=== PATIENT | female | born 1955 | race Caucasian/White ===

== ENCOUNTER 2022-01-12 17:57 | Outpatient (CLI) | payer MEDICARE, SELFPAY | END 2022-01-12 17:58 | disposition home or self-care (01) | LOC: LKVREF 01-26 14:24 | PROVIDERS: PCP Family Medicine; Visit Provider Nurse Practitioner Family | DX: R32 Unspecified urinary incontinence (principal) | CPT/HCPCS: 87086; 87186 ==

== ENCOUNTER 2022-07-03 16:03 | Outpatient (CLI) | payer MEDICARE, SELFPAY ==
--- OUTSIDE RECORDS SUMMARY | 2022-07-03 16:05 | XMS_ITS | Continuity of Care Document ---
:1955 Author Organization [facility] Address [address] [place] [address] Care Team Providers Name Role Phone [facility] Unavailable Unavailable Procedures Procedure Date INJ FORAMEN EPIDURAL L/S FLUOROGUIDE FOR SPINE INJECT INJ FORAMEN EPIDURAL L/S Advance Directives Directive Yes / No Effective Date File Name No Information Encounters Encounter Practice Location Reason(s) Diagnoses Date Provider Provide rs Description For Visit Copied on Encounter [facility] Provider: Surgery Surgery Surgery [facility], [facility]. [facility], [address] [facility] [place], [place], [place], [id number], [place], [address]. [id number], tel:[phone] tel:[phone] Family History Family Member Type Diagnosis Age At Onset No Information Payers Payer name Insurance type Covered constitution party ID Authorization(s ) No Information Social History Type Description Quantity Date Captured Comments Sex Female Smoking Status No Information Chief Complaint And Reason For Visit No Information Reason For Referral Reason For Referral No Information Plan Of Treatment Date Type Action Status No Information History Of Present Illness Encounter Date Complaint History Of Present I llness No Information Functional Status Date Functional Assessment No Information Instructions Date Instruction Additional Informati on No Information Assessments Type Assessment Date No Information Patient Care Teams Name Effective Dates (start - stop) Status M embers No Information
--- OUTSIDE RECORDS SUMMARY | 2022-07-03 16:06 | XMS_ITS | Continuity of Care Document ---
:1955 Author Organization [facility] Address [address] [address] [place] [address] Phone Care Team Providers Name Role Phone Familia Valentin MD Unavailable Unavailable Allergies, Adverse Reactions, Alerts Substance Reaction Status Criticality aspirin Active No Information Medications Medication Instructions Dosage Effective Dates Status Comment s (start - stop) pregabalin 200 mg take 1 capsule by 200 MG - Active capsule oral route 2 times every day WELLBUTRIN SR take 1 tablet by Not Available - Active (unknown ORAL route 2 times strength) every day Herbal medical marijuana - Active Medications/Suppl ements unknown DETROL LA take 1 Capsule by Not Available - Active (unknown oral route every strength) day CELEXA (unknown take 1 tablet by Not Available - Active strength) oral route every day Mavyret 100 mg-40 take 3 tablet by - No Longer mg tablet oral route every Active day with a meal for 8 weeks Procedures Procedure Date Ugi Endo; W/bx 1/mx Level Iv-surg Path Gross/micro Offic/outpt E&m Estab Mod-hi 2 Routine Serum Collection Bld Ct; Hg & Platelet Ct Autom Alpha-fetoprotein; Serum Comp Metabolic Panel FibroScan Routine Serum Collection Alpha-fetoprotein; Serum Comp Metabolic Panel Hepatitis A Antibody; Igg & Ig Hepatitis B Surface Antibody Ag-immunoassay; Hep B Surface Prothrombin Time Advance Directives Directive Yes / No Effective Date File Name No Information Encounters Encounter Practice Location Reason(s) Diagnoses Date Provider Provide rs Description For Visit Copied on Encounter [facility] No Information [facility] 0 MD [facility], 0 Kurt. [address] [address], [facility] [address] [place], [place], [place], [place] [id number], [address], [place] tel: [place], [place], [phone] , [place]. tel: [phone] [facility] Referring [facility] esophagus Provider: Health GERARDO, Endoscopy determined by 0 Mendoza. 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 tel: esophagus without [place], [place], tel :[phone] dysplasiaChronic [id number] viral hepatitis C , [place]. tel: [phone] [facility] No Information b- [facility] 6 MD [facility], 0 Kurt. [address] [address], [facility] s, [place], [place], [place] [id number], [address], [place] tel: [place], [place], [phone] , [place]. tel: [phone] Offic/outpt [facility] GI Chronic viral b- Barbie pavon E&josé miguel [facility] Symptoms hepatitis C MD [facility] Provide r: Mod-hi 2 Health [facility], or 0 Kurt. Referral [address]. [address], (chief [facility] complaint) Street [place], [place], [place], [place] [id number], [address], [place] tel: [place], [place], [phone] , [place]. tel: [phone] MOLLY [place] No Information Nov- [facility] 9-201 MD Rebecca CARRILLO, Ирина Owens. [address] [address], [facility] s, [place], [place], [place] [id number], [address], [place] tel:+ [place], [place], [phone] , [place]. tel: [phone] MOLLY [place] Chronic viral Brian-1 Barbie [facility] hepatitis C 3-201 MD [facility] Provider: Ирина Ortiz. Referral [address]. [address], [facility] s, [place], [place], [place] [id number], [address], [place] tel:[phone] [place], [place], [phone] , [place]. tel: [phone] MOLLY [facility] Chronic hepatitis Brian-0 Barbie Zaman [facility] Symptoms C without hepatic 5 S Pro vider: Rebecca CARRILLO, or coma 9 Kurt. 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 [place] tel:[phone] tel:+ [place], [place], [phone] , [place]. tel: [phone] Family History Family Member Type Diagnosis Age At Onset Mother Problem (finding) Alive and well Father Problem (finding) Immunizations Vaccine Date Status Comments Prevnar administered Note: [facility] bi-di rectional interface ; Sour ce: Other Registry tetanus toxoid, reduced administered Note: [facility] bi-directional diphtheria toxoid, and interface ; Source: Other acellular pertussis vaccine, Reg istry adsorbed Influenza administered Note: [facility] bi-di rectional interface ; Sour ce: Other Registry Payers Payer name Insurance type Covered alliance party ID Authorization(s ) No Information Social History Type Description Quantity Date Captured Comments Alcohol Use Details Unknown Caffeine Use Details Unknown Tobacco Use Status No Information Smoking Status No Information Sex Female Chief Complaint And Reason For Visit No Information Reason For Referral Reason For Referral No Information Plan Of Treatment Date Type Action Status Referral Ordered: ordered follow-up visit with hepatology nurse 3 Weeks Appointment date/timeframe: 3 Weeks History Of Present Illness Encounter Date Complaint History Of Present I llness GI Symptoms or Concerns The patient is a 64-year-old woman with chronic hepatitis C. She was seen 6 months ago, and tentative p lans were made for treatment, but she d id not come for followup. She frequently goes out of town and feels that it is difficult too treat when she is not here for a period of time . Workup 6 months ago revealed that she is genotype 1a with 7.7 million internationa l units of virus present. She is not immune to hepatitis B and non-infected for B. Moderate transaminase elevations with AST 76, ALT 129 and ultrasound done at that time re vealed fatty infiltration, otherwise unremarkab le exam. Notably, FibroScan was done a nd demonstrated 30 kilopascals of stiff ness indicating that she is cirrhotic. She sauer s no specific complaints today. Physical exam was noncontributory. There is no hepatosp lenomegaly, no ascites, no edema and no asterix is. Past history otherwise notable for shoulder surgery, ACL surgery, left leg surgery, ri ght foot surgery and a total hysterectomy. She is a nonsmok GI Symptoms or Concerns The patient is a 63-year-old woman who comes in for further evalu ation of possible liver disease. She states she knows she has hepatitis C, but is uncertain she can afford medication. 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 Past his tory is also notable for shoulder surgery, AC L surgery, left leg surgery, right foot surgery and hysterectomy. She has a lower extr emity neuropathy and actually fell 3 time s last year with a fractured tibia requ iring pinning. She is a nonsmoker. Review of systems is completely negative. Only medic ations at this time are Detrol and Celexa. P hysical exam is completely unremarkable. There is no hepatomegaly, no ascites, no asterixi s, no spider angiomata, and no edema. Labora tory done in September of last year notable for mod erate transaminase elevations with AST 93, ALT 110, hemoglobin A1c 5.4. Total bilir ubin and albumin were normal. More recent liver tests done in August of this year again w ith mild mukherjee Functional Status Date Functional Assessment No Information Instructions Date Instruction Additional Informati on Repeat comprehensive metabolic Related t o Chronic hepatitis C profile, INR, HCV RNA genotyping, withou t hepatic coma liver ultrasound, FibroScan, hepatitis A-B serologies and consider vaccinating as necessary. Patient is going to [facility] next month for a family vacation home and will be there for about 2 months. We will plan follow up in 3 months and hopefully begin hepatitis C treatment at that time. Assessments Type Assessment Date No Information Patient Care Teams Name Effective Dates (start - stop) Status M huy No Information
--- OUTSIDE RECORDS SUMMARY | 2022-07-03 16:06 | XMS_ITS | Continuity of Care Document ---
:1955 Author Organization [facility] Address [address] [place] [address] Phone Care Team Providers Name Role Phone Roger Blanco Unavailable Unavailable Allergies, Adverse Reactions, Alerts Substance Reaction Status Criticality No Known Allergies Active No Informatio n Medications Medication Instructions Dosage Effective Dates Status Comment s (start - stop) PREGABALIN 200 MG TAKE 1 CAPSULE BY - Active CAPSULE MOUTH TWICE A DAY tramadol 50 mg take 1 tablet by - Active tablet oral route every 6 hours by oral route for chronic pain Medrol (Evan) 4 mg take by Oral route Not Available - Acti ve tablets in a dose as directed on pack pack DETROL LA (unknown take 1 capsule by Not Available - Active strength) oral route every day CELEXA (unknown take 1 tablet by Not Available - Active strength) oral route every day Procedures Procedure Date OFFICE/OUTPATIENT VISIT, EST Foll-up eval q3mo opiod tx OFFICE/OUTPATIENT VISIT, EST Drug Urine Toxology With Chromatography Drug test def 15-21 classes Foll-up eval q3mo opiod tx OFFICE/OUTPATIENT VISIT, EST Foll-up eval q3mo opiod tx OFFICE/OUTPATIENT VISIT, EST Drug Urine Toxology With Chromatography Drug test def 8-14 classes Foll-up eval q3mo opiod tx OFFICE/OUTPATIENT VISIT, EST Foll-up eval q3mo opiod tx OFFICE VISIT, EST TELEMEDICINE OFFICE VISIT, EST TELEMEDICINE Foll-up eval q3mo opiod tx OFFICE VISIT, EST TELEMEDICINE Foll-up eval q3mo opiod tx OFFICE VISIT, EST TELEMEDICINE OFFICE VISIT, EST TELEMEDICINE INJ FORAMEN EPIDURAL L/S BILATERAL OFFICE/OUTPATIENT VISIT, EST Drug test def 22+ classes Drug Urine Toxology With Chromatography Foll-up eval q3mo opiod tx OFFICE/OUTPATIENT VISIT, EST PT-FOCUSED HLTH RISK ASSMT OFFICE CONSULTATION Advance Directives Directive Yes / No Effective Date File Name No Information Encounters Encounter Practice Location Reason(s) Diagnoses Date Provider Provide rs Description For Visit Copied on Encounter [facility] No Information [facility] Roger. Pain [address] [facility], [facility] Jorge Luis, [address], [place], [place], [place], [place], [id number] , [place] , [place]. tel: tel: [phone] OFFICE/OUTPAT [facility] Back Pain Other chronic [facility] Referring IENT VISIT, [facility] (chief painOther Roger. 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 . tel: tim syndrome, not tel: te l:[phone] elsewhere [phone] classifiedOther intermediate project manager (current) drug therapyDe Quervain tenosynovitis OFFICE/OUTPAT [facility] Back Pain Other chronic Pierce Referring IENT VISIT, [facility] (chief painOther Roger. 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 . tel: tim syndrome, not tel: te l:+ [phone] elsewhere [phone] classifiedOther assisted (current) drug therapy [facility] Roger. Pain [place] [address], [facility] [address] Jorge Luis, [address], [place], [place], [place], [place], [phone] , [place] , [place]. tel: tel: [phone] OFFICE/OUTPAT [facility] Back Pain Other chronic Pierce Referring IENT VISIT, [facility] (chief painOther Roger. 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 . 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 Provider: EST Pain [place] complaint) y syndrome, not 2 [address] [facility], 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 . tel: (current) drug tel: tel: [phone] therapyOther [phone] intervertebral disc displacement, lumbar region [facility] No Information [facility] Roger. Pain [place] [address], [facility] [address] Jorge Luis, [address], [place], [place], [place], [place], [id number] , [place] , [place]. tel: tel: [phone] OFFICE/OUTPAT [facility] Back Pain Other chronic Pierce Referring IENT VISIT, [facility] (chief painPostlaminectom Bassem cisse Provider: EST Pain [place] complaint) y syndrome, not [address] [facility], elsewhere [facility] [address] Will J, [address] classifiedOther [address] Jorge Luis, idiopathic 100, Jorge Luis, [place], peripheral [place], autonomic e, [place], [place], [place], [id number] neuropathyOther [phone] , [place] assisted , [place]. . tel: (current) drug tel: tel: [phone] therapyOther [phone] intervertebral disc displacement, lumbar region OFFICE VISIT, [facility] Back Pain Other chronic Pierce Referring [facility] (chief painOther long Roger. Pro[place] ramandeep: TELEMEDICINE Pain [place] complaint) term (current) [address] [facility], drug therapyOther [facility] [address] Will J, [address] idiopathic [address] Jorge Luis, peripheral 100, Jorge Luis, [place], autonomic [place], neuropathyPostlami [place], [place], [place], [place] , [address] nectomy syndrome, [phone] , [place] not elsewhere , [place]. . tel: classified tel: tel: [phone] OFFICE VISIT, [facility] Back Pain Other Pierce [facility] (chief intervertebral Roger. Pro[place] ramandeep: TELEMEDICINE Pain [place] complaint) disc displacement, 1 14 [address] [facility], lumbar region[address] Andrea l J, [address] chronic painOther [address] Jorge Luis, assisted 100, Jorge Luis, [place], (current) drug [place], therapyOther [place], [place], [place], [place], [address] idiopathic [phone] , [place] peripheral , [place]. . tel: autonomic tel: tel: [phone] neuropathyPostlami [phone] nectomy syndrome, not elsewhere classified OFFICE VISIT, [facility] Back Pain Other Pierce [facility] (chief intervertebral Roger. Pro[place] ramandeep: TELEMEDICINE Pain [place] complaint) disc displacement, 1 14 [address] [facility], lumbar regionOther [facility] [address] Andrea l J, [address] chronic painOther [address] Jorge Luis, intermediate project manager 100, Jorge Luis, [place], (current) drug [place], therapyOther [place], [place], [place], [place], [address] idiopathic [phone] , [place] peripheral , [place]. . tel: autonomic tel: tel: [phone] neuropathyPostlami [phone] nectomy syndrome, not elsewhere classified OFFICE VISIT, [facility] Back Pain Other Jul-0 Pierce [facility] (chief intervertebral Roger. [place] ramandeep: TELEMEDICINE Pain [place] complaint) disc displacement, 1 14 [address] [facility], lumbar regionOther [address] Andrea l J, [address] chronic painOther [address] Jorge Luis, assisted 100, Jorge Luis, [place], (current) drug [place], therapyOther [place], [place], [place], [place], [address] idiopathic [phone] , [place] peripheral , [place]. . tel: autonomic tel: tel: [phone] neuropathy [phone] OFFICE VISIT, [facility] Back Pain Other Pierce Refe rring EST [facility] (chief intervertebral Daniel. Lunai ramandeep: TELEMEDICINE Pain [place] complaint) disc displacement, 0 14 [address] [facility], lumbar regionOther [address] Andrea l J, [address] chronic painOther [address] Jorge Luis, intermediate project manager 100, Jorge LuisLiset, (current) drug [place], therapy [place], [place], [place], [place], [phone] , [place] , [place]. . tel: tel: tel: [phone] [facility] Other [place] Referring [facility] intervertebral Amara. Provider: Pain Center disc displacement, 0 [address] [facility], lumbar region Jorge Luis Will J, [address] [place] [address] Jorge Luis, [place], [place], Jorge Luis, [place], [phone] [place], , [place]. s, [place], [id number] tel:[phone] , [place] [id number] . tel: tel: [phone] [facility] No Information [facility] Cain. Pain [place] [address], Jorge Luis, [address] [place], [place], [place], [place], [id number] [place], , [place]. [id number] tel: , [place] [phone] tel: [phone] OFFICE/OUTPAT [facility] Back Pain Other Pierce Refe rring IENT VISIT, [facility] (chief intervertebral Roger. Haven darnellder: EST Pain [place] complaint) disc displacement, 0 [address] [facility], lumbar regionOther [address] Andrea l J, [address] assisted [address] Jorge Luis, (current) drug 100, Jorge Luis, [place], therapyOther [place], chronic pain [place], [place], [place], [place], [phone] , [place] , [place]. . tel: tel: tel: [phone] [facility] Other Will [facility] intervertebral 8 Cain. Pain [place] disc displacement, 0 [address] [facility], lumbar region Jorge Luis, [address] [place], [place], [place], [place], [id number] [place], , [place]. [id number] tel: , [place] [phone] tel: [phone] OFFICE/OUTPAT [facility] Back Pain Other chronic Pierce Referring IENT VISIT, [facility] (chief painOther Roger. 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 . tel: (current) drug tel: tel: [phone] therapyEncounter [phone] for therapeutic drug level monitoring OFFICE [facility] Back Pain Other chronic Pierce Refe rring CONSULTATION [facility] (chief painOther Roger. [place] ramandeep: Pain [place] complaint) idiopathic [address] [facility] [address] Will J, [address] autonomic [address] Jorge Luis, neuropathyOther 100, Jorge Luis, [place], intervertebral [place], disc displacement, [place], [place], [place], [place] , [address] lumbar region [id number] , [place] , [place]. . tel: tel: tel: [phone] [facility] Back Pain No [facility]chief Roger. Pain [place] complaint) 9 [address] [facility], [facility] [address] Jorge Luis, 100, [place], [place], [place], [place], [phone] , [place] , [place]. tel: tel: [phone] Family History Family Member Type Diagnosis Age At Onset No Information Payers Payer name Insurance type Covered alliance party ID Authorization(s ) AARP MedicareComplete Replacement [id number] Social History Type Description Quantity Date Captured Comments Sex Female Smoking Status No Information Chief Complaint And Reason For Visit No Information Reason For Referral Reason For Referral No Information Plan Of Treatment Date Type Action Status Goal Medication Reconciliation. Due o n due Goal CT-Colonography. Due on 022 due Goal FIT-DNA. Due on due Goal FIT. Due on due Goal Review Allergy List. Due on due Goal Height. Due on due Goal Update Social History. Due on Goal PHQ-9. Due on due Goal Weight. Due on due Goal Unhealthy drug use screening. Du on due Goal Tobacco Use. Due on due Goal Hepatitis C screening. Due on Goal Zoster vaccine (1st). Due on due Goal Lipid panel. Due on due Goal PHQ-9. Due on due Goal Review Allergy List. Due on due Goal FIT-DNA. Due on due Goal Update Social History. Due on Goal Hepatitis C screening. Due on Goal Weight. Due on due Goal Medication Reconciliation. Due o n due Goal Lipid panel. Due on due Goal Zoster vaccine (). Due on due Goal Unhealthy drug use screening. Du e on due Goal Height. Due on due Goal Tobacco Use. Due on due Goal FIT. Due on due Goal CT-Colonography. Due on due Goal FIT-DNA. Due on due Goal Zoster vaccine (). Due on due Goal Tobacco Use. Due on due Goal Review Allergy List. Due on due Goal CT-Colonography. Due on due Goal Update Social History. Due on du Goal PHQ-9. Due on due Goal Weight. Due on due Goal Lipid panel. Due on due Goal FIT. Due on due Goal Unhealthy drug use screening. Du e on due Goal Medication Reconciliation. Due o n due Goal Hepatitis C screening. Due on du e Goal Height. Due on due Goal Height. Due on due Goal Tobacco Use. Due on due Goal Review Allergy List. Due on due Goal Medication Reconciliation. Due o n due Goal Update Social History. Due on Goal Weight. Due on due Goal PHQ-9. Due on due Goal CT-Colonography. Due on 022 due Goal FIT. Due on due Goal FIT-DNA. Due on due Goal Hepatitis C screening. Due on Goal Lipid panel. Due on due Goal Unhealthy drug use screening. on due Goal Zoster vaccine (). Due on due Goal Height. Due on due Goal Review Allergy List. Due on due Goal Tobacco Use. Due on due Goal Weight. Due on due Goal Update Social History. Due on Goal PHQ-9. Due on due Goal Medication Reconciliation. Due o n due Goal Height. Due on due Goal Review Allergy List. Due on due Goal Tobacco Use. Due on due Goal Weight. Due on due Goal Update Social History. Due on yefri Goal PHQ-9. Due on due Goal Medication Reconciliation. Due o n due Goal Height. Due on due Goal Review Allergy List. Due on due Goal Tobacco Use. Due on due Goal Weight. Due on due Goal Update Social History. Due on Goal PHQ-9. Due on due Goal Medication Reconciliation. Due o n due Goal Height. Due on due Goal Review Allergy List. Due on due Goal Tobacco Use. Due on due Goal Weight. Due on due Goal Update Social History. Due on Goal PHQ-9. Due on due Goal Medication Reconciliation. Due o n due Goal Height. Due on due Goal Review Allergy List. Due on due Goal Tobacco Use. Due on due Goal Weight. Due on due Goal Update Social History. Due on Goal PHQ-9. Due on due Goal Medication Reconciliation. Due o n due Goal Height. Due on due Goal Review Allergy List. Due on due Goal Tobacco Use. Due on due Goal Weight. Due on due Goal Update Social History. Due on Goal PHQ-9. Due on due Goal Medication Reconciliation. Due o n due Future Order: [facility] Sent on: Sent Future Order: Lab Order Toxicology Preliminary P [place] (2100), Sent Sent on: History Of Present Illness Encounter Date Complaint History Of Present I llness Back Pain Severity level is 9. Duration: chronic. The problem is worsening . It occurs persistently. The client describes the pain as an ache, burning, sharp and tingling. Symptoms are aggravated by lifting, running, wa lking, prolonged positioning and housework. Sympt oms are relieved by heat, ice, pain meds/drugs , sitting and standing. Comments: Luz Maria is here today for follow up and medication managemen t. Reports 80% relief with current regimen and denies any side effects. Details significant relief with Lyrica. Reports overall pain has wor sened since last office visit. Continues to report neck and lower back pain. Notes continue d shooting pain in R thumb and hand. Also repor ts swelling. Notes using cannabis cream has h elped. Interested in injections.Of note, traveling to [facility] in January.She is agr eeable to continue with Belbuca and Tramadol for pain management. Did not bring medication for count today. States the tramadol has not hel ped with her pain recently. Continues medical ca nnabis. Patient is not accompanied today an d has no other questions or concerns. Back Pain Severity level is 8. Duration: chronic. The problem is worsening . It occurs persistently. The client describes the pain as an ache and sharp. Comments: Luz Maria is here today for follow up and medication managemen t. Reports >50% relief with their current regime n and denies any side effects. Details sig nificant relief with Lyrica. Reports overall pain has worsened since last office visit. Contin ues to report neck and lower back pain. Notes gigi oting pain in R wrist and hand. Notes using ca nnabis cream has helped. Of note, she is traveli ng to [place].She is agreeable to continu e with Belbuca and Tramadol for pain management. Did not bring medication for count today. Reports she has a full box left and will remember to pelon bañuelos her medication next OV. Reports she needs a recertification for medical cannabis.Patient is not accompanied today and has no other questions o r concerns. Back Pain Severity level is 5. Duration: chronic. The problem is stable. I t occurs persistently. Location of pain is lower back and neck. The client describes the pain as an ache, burning, numbness and sharp. Symptoms are aggravated by ascending stairs, be nding, descending stairs, lifting, running, si tting, standing, twisting and walking. Symptoms ar e relieved by heat, ice, lying down, pain med s/drugs, rest and sitting. Comments: Luz Maria is here today for follow up and medication managemen t. Reports >50% relief with their current regime n and denies any side effects. Details sig nificant relief with Lyrica. Reports overall pain to be stable since last office visit. Contin ues to report neck and lower back pain.Of note, p alexy reports acute injury after falling off a ladder. Consulting Radiology XR completed showing L8 rib fracture. While seen at urgent care patie nt received prescription of oxycodone for pain m anagement. Patient notes SE of itching. She is a greeable to continue with Belbuca and Tramadol for pain management.Patient is accompanied by he r today and has no other questions or c oncerns. Back Pain Severity level is 5. Duration: chronic. The problem is worsening . It occurs persistently. Location of pain is lower back and neck.The patient describes th e pain as an ache, burning, sharp and tingling. Symptoms are aggravated by lifting, housework a nd prolonged positioning. Symptoms are relieve d by heat, lying down, pain meds/drugs, stretchi ng, sitting, standing and changing positions. Back Pain (comments) Luz Maria is here toda y for follow up and medication management. Reports >50% relief with their current regimen and denies any side effects. Details significant relief with Lyrica. Reports overall pain to be s table since last office visit. Continues to report neck and lower back pain. She continues to consider lumbar surgery. Continues to heal fr om R wrist fracture.She has been utilizing Belbu ca 75mcg/hr with significant benefit. She has bee n cutting the films in half, which explains why s he follows-up every 1-2 months. Continues to report difficulty with insurance coverage. Most of today's OV was spent discussing upd ated imaging and available treatment options. Haven tracey is not accompanied today and has no oth er questions or concerns. Back Pain Duration: chronic. T he problem is stable. Location of pain is lower back.The patient describes the pain a s an ache, burning and sharp. Symptoms are aggrava fer by ascending stairs, bending, lifting, st anding, twisting and walking. Symptoms are relieve d by pain meds/drugs and rest. Back Pain (comments) Luz Maria is here toda y for follow up and medication management. Reports >50% relief with their current regimen and denies any side effects. Details significant relief with Lyrica. Reports overall pain to be s table since last OV. Continues to report neck and lower back pain. She continues to conside r lumbar surgery. Reports an onset of R wrist stephani n. States she fell and fractured it in [facility] places. Notes she was unable to trial Belb uca since last OV because it was too expensive. Haven tracey is not accompanied today and has no oth er questions or concerns. Back Pain Severity level is 8. Duration: chronic. The problem is worsening . It occurs persistently. Location of pain is lower back and feet.The patient describes th e pain as an ache. Symptoms are aggravated by be nding, lifting, movement and housework. Symptoms are relieved by ice, stretching, walking and changing positions. Back Pain (comments) Luz Maria is here toda y for follow up and medication management. Reports >50% relief with their current regimen and denies any side effects.Reports that her left heal pain is getting worse. Inqui res today if updated imaging would be helpful to evaluate her large herniated disc. Reports that s he does not want to return back to her neck los geon as she did not care for his bedside manor. S tates that she feels a lot more energetic since decreasing her Lyrica from 300mg to 200mg capsu les. She does not always take the Belbuca. It depe nds on how active she is for the day and how much her back is exacerbating her radicular symptoms. Patient is not accompanied today and has no oth er questions or concerns. Back Pain Severity level is 7. Duration: chronic. The problem is stable. I t occurs persistently. Location of pain is lower back and legs.The patient describes th e pain as an ache, burning and sharp. Symptoms are aggravated by ascending stairs, bending, julia nging positions, descending stairs, lifting, sta nding, twisting and walking. Symptoms are relieve d by heat, ice, lying down, pain meds/drugs and rest. Back Pain (comments) Luz Maria is here for follow-up and medication refills. Ongoing leg and low back pain persists, tolerable with medic ation. Her PCP recently decreased to lyrica 200mg twice a day. She uses Belbuca when she is in severe pain. She continues to use medical canna bis as needed. Requests a refill of Reports cu rrent medication regimen provides at least 50 % pain relief. Denies side effects from current medication regimen. No other concerns today. Back Pain Severity level is 8. Duration: chronic. The problem is stable. I t occurs persistently. Location of pain is lower back.The patient describes the pain a s an ache, burning and sharp. Symptoms are aggrava fer by ascending stairs, bending, changing po sitions, descending stairs, lifting and standing . Symptoms are relieved by heat, ice, lying kimmie n, pain meds/drugs and rest. Back Pain (comments) Luz Maria is here for follow-up and medication refills. She returns with widespread neck and low back pain which has been worse. She had a ACDF 5-7 on 08/22/[address] Falk which did not help her symptoms. S he will also be having lumbar surgery once she hea ls from cervical surgery. Medical cannabis is helpful but it does not manage all her pain. She requests to trial alternative pain med ication. Requests a refill of lyrica.Reports curre nt medication regimen provides at least 50 % pain relief. Denies side effects from current medication regimen. No other concerns today. Back Pain Severity level is 10 . Duration: chronic. The problem is worsening . It occurs persistently. Location of pain is lower back.The patient describes the pain a s an ache, burning and sharp. Symptoms are aggrava fer by ascending stairs, changing positions, descending stairs, lifting and standing. Sympto ms are relieved by heat, ice, lying down and rest. Back Pain (comments) Mariluz is here for follow-up ; last follow-up 08/31/2019. She presen ts with neck, low back and L hip pain. Pain has b een worse. She has been in [place] since last M ay taking care of her 95-year-old mother. She will be having a lumbar surgery on 08/22 with the [facility]. She believes no hardware will be yomi rob in her spine during surgery. She request s a refill and an increase of Lyrica before her up coming surgery. Reports current medication r egimen provides at least 50% pain relief. Denies side effects from current medication regimen. No other concerns today. Back Pain (comments) Luz Maria presents for follow up regarding her persistent back and BL foot pain.Reports that recent SARITA did not o ffer any relief and pain continues to be elev ated. C/o numbness in BLE with standing for mo re than two min which can make daily activitie s difficult. Ongoing relief with Lyrica and medi ana cannabis. Muscle relaxants in the pas t without benefit.No further questions or concern s. Back Pain Severity level is 9. Duration: chronic. The problem is worsening . It occurs persistently. The patient describes th e pain as an ache, burning, numbness, sharp and tingling. Symptoms are aggravated by standi ng, walking, movement and prolonged positionin g. Symptoms are relieved by heat, lying down and over the counter medication. Back Pain Severity level is 10 . Duration: chronic. The problem is fluctuati ng. It occurs persistently. Location of pain is lower back. Pain is radiated to the left foot and right foot.The patient describes the pain a s an ache, burning, sharp and tingling. Symptoms a re aggravated by ascending stairs, descending s tairs and walking. Symptoms are relieved by slee ping. Back Pain (comments) Luz Maria is here toda y for a followup regarding her persistent back pain . Recently met with dispensary following medical cannabis certification and re ports minimal improvements in her neuropathy since she started using recommended product. Started Lyrica with PCP and this has been more b eneficial for controlling her pain. Reports some i mprovements in her anxiety since starting medic al cannabis, but is not sure benefits outweigh th e cost of the products. She remains interested i n lumbar SARITA, but she would like MAC sedation fo r anxiety.Patient is not accompanied today an d has no further questions or other concerns. Back Pain Severity level is 5. Duration: chronic. It occurs persistently. Locati on of pain is lower back. Pain is radiated to the left calf and right calf.The patient ginger cribes the pain as burning and tingling. Sympto ms are aggravated by bending, daily activities, ly ing/rest and prolonged positioning. Symptom s are relieved by heat, ice, rest, changing posit ions, standing and walking. Back Pain (comments) Luz Maria is here toda y for a followup after initial consult for persiste nt back pain. States she is "not ready to complete LESI recommended last OV. Additionall y notes upcoming lumbar surgery with [facility] colin eduled later this month to remove painful hardw are. Today, she is requesting to move forward with medical cannabis certification. Addit ional questions regarding this were addressed today by provider. Patient is not accompanied tobarbara lema and has no further questions or other c oncerns. Back Pain (comments) Luz Maria is here for an initial consult for low back and bilateral f oot pain, referred by Dr. Kaur. LE neuropat hy began 5 years ago and worsened after fract uring her foot and undergoing subsequent surgical repair. Reports her hardware has migrated and thi s causing her increased pain. She is following britany Booker at [facility] next week regarding further w/ u. Tentatively plans to proceed with revisio n surgery 2019.Low back pain started a few m onths ago after a falling injury. Did not expe rience much pain until she went on a plane to [facility] when her symptoms onset. Was seen by [facility] betancourt in [place] and completed CT scan. S he did not complete any interventions there. States she annot stand for prolonged periods of time d/t pain and numbness in her BLE. Has not undergone PT or trialed injections to treat her pain. Reports previous imaging earlier this month--[facility]. Has taken Gabapentin, Ly chavez, and hydrocodone for additional pain reli ef. Most recently she has been taking Lyrica w hich has has been helpful. OTC CBD provides add itional pain relief. Luz Maria is interested in rec ommended therapies and would like [facility] to assume management of pain care. Back Pain Onset: sudden with i njury. Severity level is 10. Duration: acute. It occurs persistently. Symptoms are aggravated by be nding, daily activities, lifting, standing an d movement. Symptoms are relieved by heat, ic e, lying down, pain meds/drugs, stretchi ng, rest, sitting and walking. Back Pain (comments) Luz Maria is here for an initial consult for low back and bilateral f oot pain, referred by Dr. Kaur. Neuropathy began 5 years ago and worsened after fract uring her foot and subsequent surgical repair. Low back pain started a few months ago after a f alling injury. Cannot stand for prolonged period s of time d/t pain. Has not undergone PT or tria led injections to treat her pain. Reports previo us imaging earlier this month--[facility] . Has taken Gabapentin, Lyrica, and hydrocod one for additional pain relief. Luz Maria is in terested in recommended therapies and would like [facility] to assume management of pain c are. Back Pain Functional Status Date Functional Assessment No Information Instructions Date Instruction Additional Informati on No Information Assessments Type Assessment Date No Information Patient Care Teams Name Effective Dates (start - stop) Status M huy No Information
[2022-07-03 21:31] LABS: Albumin* 4.2 g/dL (3.3-5.0)
[2022-07-03 21:32] LABS: Chloride* 108 mmol/L (96-114); Potassium* 4.5 mmol/L (3.6-5.1); Sodium* 142 mmol/L (135-149)
[2022-07-03 21:34] LABS: Bilirubin Total* 0.5 mg/dL (0.1-1.5); Carbon Dioxide* 30 mmol/L (20-32); Cholesterol* 156 mg/dL (90-199); Creatinine* 0.6 mg/dL (0.5-1.5); Estimated Glomerular Filt Rate 97 ml/min
[2022-07-03 21:35] LABS: Alanine Aminotransferase* 71 U/L (4-35); Alkaline Phosphatase* 81 U/L (40-150); Aspartate Amino Transferase* 56 U/L (12-35); Blood Urea Nitrogen* 18 mg/dL (7-30); Calcium* 9.2 mg/dL (8.4-10.6); Glucose* 106 mg/dL (60-115); Total Protein* 7.3 g/dL (6.0-8.3); Triglycerides* 115 mg/dL (40-149)
[2022-07-03 21:36] LABS: HDL Cholesterol* 72 mg/dL (>=50); LDL Cholesterol Calculated 61 mg/dL (<100)
== END 2022-07-03 16:04 | disposition home or self-care (01) ==
PROVIDERS: PCP Family Medicine; Visit Provider Family Medicine
DX: Z01.818 Encounter for other preprocedural examination (principal); F32.A Depression, unspecified; K51.90 Ulcerative colitis, unspecified, without complications; R76.8 Other specified abnormal immunological findings in serum; Z13.6 Encounter for screening for cardiovascular disorders
CPT/HCPCS: 80053; 80061

== ENCOUNTER 2023-11-18 11:25 | Outpatient (CLI) | payer MEDICARE, SELFPAY ==
--- OUTSIDE RECORDS SUMMARY | 2023-11-22 19:02 | XMS_ITS | Clinical Summary ---
Author Organization [facility] Address [address] [place] [address] Care Team Providers Care Podiatrist Assistant Name Role Phone Chriss Kaur Primary Care Provider Unavailab erika Cannon Md Unavailable Unavailable Allergies No known active allergies Medications Medication Sig Dispensed Refills Start Date End Date Status buprenorphine HCL (SUBUTEX) 2 mg sublingual sublingual tablet TAKE 1 TABLET DAILY FOR SEVERE CHRONIC PAIN 08/06/2022 Active buPROPion (WELLBUTRIN XL) 300 mg oral extended release tablet 24 HR Take 1 tablet (300 mg) by mouth once daily. 07/03/2022 Active citalopram (CELEXA) 40 mg oral tablet Take 1 tablet (40 mg) by mouth once daily. 07/03/2022 Active oxyBUTYnin chloride (DITROPAN XL) 10 mg oral extended release tablet 24 HR Take 1 tablet (10 mg) by mouth Daily. Active traZODone (DESYREL) 50 mg oral tablet TAKE 1-2 TABLETS BY ORAL ROUTE EVERY DAY AT BEDTIME 08/06/2022 Active traMADoL (ULTRAM) 50 mg oral tablet take 1 tablet by oral route every 6 hours by oral route for chronic pain 10/16/2021 Active Pregabalin 200 mg oral capsule Take by mouth twice a day. 07/21/2022 Active Active Problems Problem Noted Date Diagnosed Date Insomnia, psychophysiological 09/02/2022 Habitual snoring 09/02/2022 Non-restorative sleep 09/02/2022 Cervical myelopathy with cervical radiculopathy 06/14/2020 Overview: Added automatically from request for surgery [id number] Immunizations Name Administration Dates Next Due Influenza 02/23/2016 Influenza High Dose 04/15/2020 Pfizer 12+ Yrs MONOVALENT COVID Vaccine (purple cap) 10/18/2020,09/23/2020 Pneumococcal PCV13 11/25/2018 Tdap 09/02/2016 Social History Tobacco Use Types Packs/Day Years Used Date Smoking Tobacco: Never Assessed Sex and Gender Information Value Date Recorded Sex Assigned at Not on file Gender Identity Not on file Sexual Orientation Not on file Last Filed Vital Signs Vital Sign Reading Time Taken Comments Blood Pressure - - Pulse - - Temperature - - Respiratory Rate - - Oxygen Saturation - - Inhaled Oxygen Concentration - - Weight 59 kg (130 lb) 09/02/2022 4:21 PM CDT Height 162.6 cm (5' 4) 09/02/2022 4:21 PM CDT Body Mass Index 22.31 09/02/2022 4:21 PM CDT Plan of Treatment Health Maintenance Due Date Last Done Comments Colonoscopy 1955 Hepatitis C Screening 1955 Lipid Screening 1955 Mammogram Screening 1955 Medicare Wellness Visit 1955 Osteoporosis Screening 1953 Depression Assessment (PHQ-2) 1954 Yearly Review of HCD 2003 Zoster Vaccine (1 of 2) 2003 RSV 60+ Yrs (1 - 1-dose 60+ series) 2013 COVID-19 Vaccine (3 - season) 2023, 09/23/2020 Influenza Vaccine (Season Ended) 2024 04/15/2020, 02/23/2016, 02/23/2016 Adult Tetanus Booster 09/02/2026 09/02/2016 Pneumococcal 65+ Completed 11/15/2020, 11/25/2018 Care Teams Podiatrist Assistant Relationship Specialty Start Date End Date Chriss Kaur PCP - General 08/13/22 Unknown, NO ADDRESS/PHONE/FAX AFFILIATED [facility]CP - [facility] 08/13/22
--- OUTSIDE RECORDS SUMMARY | 2023-11-22 19:02 | XMS_ITS | Referral Summary ---
Author Organization [facility] Address [address] [place] [address] Care Team Providers Care Blemish Remover Name Role Phone Chriss Kaur Primary Care [...] Overview: Added automatically from request for surgery [id number] Immunizations Name Administration Dates Next Due Influenza [...] 09/02/2022 4:21 PM CDT Plan of Treatment Not on file Care Teams Blemish Remover Relationship Specialty Start Date End Date Chriss Kaur PCP - General 08/13/22 Unknown, NO ADDRESS/PHONE/FAX AFFILIATED PCP - [facility] 08/13/22
--- OUTSIDE RECORDS SUMMARY | 2023-11-22 19:03 | XMS_ITS | Data Portability ---
Author Organization [place] - [place] - Priscilla gil, [id number]_ER_[facility] Address [address] [place] [address] Assessment No assessment recorded. Plan of Treatment Reminders Order Date Submit Date Provider Last Modified By Organization Details Last Modified Time Details Appointments None recorded. Lab None recorded. Referral physical therapist referral - Right foot pain. 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 Evaluate and treat. Duration 6-8 weeks. Frequency 1x/week. Please try to start weaning her out of boot in about a week. We discussed a carbon insert if this was painful. 2019 020 [place], [address] [place], [address], 0 08:07:35 Procedures None recorded. Surgeries None recorded. Imaging XR, foot - Right foot pain 2019 020 [place] - In Office Orders (For Internal Use Only), [address] [place], [address], 0 08:46:23 MRI, foot, w/o contrast - 1st metatarsal post removal hardware. concern for fracture [address] [facility], [address] [place], [address], 0 08:24:42 Medication Orders None recorded. Patient TargetsNo targets recorded. Patient InstructionsNo instructions recorded. Reason for Referral Physical Therapist Referral for Pain in right foot Right foot pain. 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 Also wondering if she is developing a little complex regional pain syndrome given the fact that her pain is a little out of proportion. Evaluate and treat. Duration 6-8 weeks. Frequency 1-2x/week. In 2-3 weeks once pain down please try to start to wean her out of boot as tolerated. Thank you. needs to be relatively pain free when she does. Thanks. Referring Physician: Ginger [facility], Encounter Date: 01/29/2020 Physical Therapist Referral for Pain in right foot Right foot pain. 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 Evaluate and treat. Duration 6-8 weeks. Frequency 1x/week. Please try to start weaning her out of boot in about a week. We discussed a carbon insert if this was painful. Referring Physician: Ginger [facility], Encounter Date: 02/01/2020 Results Created Date Observation Date Name Description Value Unit Range Abnormal Flag LastModifiedBy Organization Detail LastModifiedTime 01/18/20 20 01/18/2020 XR, foot [facility] EXAMIN ATION: FOOT MIN 3 VIEWS CPT: 17288 Mod: RIS Order: [id number] (XR1) (0050) Invisi on Order: -RAD [id number] COMPLE SU: Jan 18 2020 1:21PM FULL RESULT : INDICA TION: Foot pain and swelli ng. TECHNI QUE: 3 views of the right foot were obtain ed. FINDIN GS: There is a screw fragme nt in the base of the first metata rsal. There is either an old healed fractu re or osteot tim of the first metata rsal. No acute fractu res are seen. There is mild osteoa rthrit is in the interp halang eal joint of the great toe. There is marked diffus e swelli ng on the dorsum of the foot. IMPRES GILLIAN: 1. Screw fragme nt in the base of the first metata rsal. 2. Osteoa rthrit is in the interp halang eal joint of the great toe. 3. Marked dorsal swelli ng. ELECTR ONICAL LY SIGNED BY: TWILA Bryan M.D. Jan 18 2020 3:16PM Dictat ed: Jan 18 2020 3:15PM [email or web address] Transc ribed: Jan 18 2020 3:15PM Disper sed: Jan 18 2020 3:16PM Orderi ng Dr: GINGER HARVEY ing Dr: GINGER HARVEY Primar y Care: GINGER HARVEY Additi onal Doctor (s): ELECTR ONICAL LY SIGNED BY: TWILA Bryan M.D.Au g 2019 3:16PM ^ [facility] - [place] [facility] [address], [place], [address], 02/01/2020 08:46:23 01/25/2001/23/2020 MRI, lower extre mity, w/o contr ast INDICA TION: Pain and swelli ng after hardwa re remova l, concer n for first metata rsal fractu re. COMPAR LALA: Radiog raphs from 020. TECHNI QUE: MR imagin g of the right foot was perfor med withou t contra st. Axial T1-saloni ghted and fat-boudreaux ppress ed proton densit y weight ed, quiros l T1-saloni ghted and STIR and sagitt al T2-saloni ghted images were obtain ed.. FINDIN GS: There is magnet ic suscep tibili ty artifa ct from a screw fragme nt which remain s in the first metata rsal head. This causes nonuni form fat suppre ssion which limits the study. No fractu res are seen. Specif ically , the first metata rsal appear s to be intact . There is slight bone marrow edema in the shaft of the first metata rsal which could be from hardwa re remova l, bone bruisi ng or mild stress reacti on. Howeve r, no fractu re lines are seen and there is no retrop eriton eal replac ement on T1-saloni ghted imagin g. There is also modera te bone marrow edema in the distal phalan x of the great toe consis tent with bone bruisi ng or stress reacti on. There is slight joint space narrow ing and osteop hyte format ion in the MTP joint of the great toe. There is also joint space narrow ing and margin al spurri ng at the interp halang eal joint of the great toe. There is a large amount of synovi al thicke rahul surrou nding the extens or halluc is longus tendon consis tent with tenosy noviti s. This appear s to be in the region of the patien t's pain. No tendon tear is seen. The rest of the tendon s and tendon sheath s are normal in appear ance. No ligame nt tears are seen. There is marked edema in the subcut aneous soft tissue s on the dorsum of the ankle and midfoo t. No soft tissue masses or gangli on cysts are seen. IMPRES GILLIAN: 1. There is a screw fragme nt remain ing in the base of the first metata rsal. There is slight bone marrow edema in the first metata rsal consis tent with mild bone bruisi ng. No fractu re is seen. 2. Modera te bone marrow edema in the distal phalan x of the great toe consis tent with bone bruisi ng or stress reacti on. 3. Marked tenosy noviti s involv ing the extens or halluc is longus tendon sheath . 4. Marked edema in the subcut aneous soft tissue s on the dorsum of the ankle and midfoo t consis tent with lymphe jos. 5. Mild osteoa rthrit is in the MTP joint of the great toe and interp halang eal joint of the great toe. Electr onical ly Signed By: Twila bryan MD [facility] 01-24 07:45[facility] [address] [place], [address], 01/29/2020 08:13:02 01/25/20 20 MRI, foot, w/o contr ast No observ ation record ed. [email or web address] [facility] [address] [place], [address], 01/30/2020 15:15:23 Result Notes Documentation Provider Name and Address Organization Details Recorded Time Xr, Foot : [facility] EXAMINATION: FOOT MIN 3 VIEWS CPT: 47894 Mod: RIS Order: [id number] (XR1) (0050) Invision Order: -RAD [id number] COMPLETED: Jan 18 2020 1:21PM FULL RESULT: INDICATION: Foot pain and swelling. TECHNIQUE: 3 views of the right foot were obtained. FINDINGS: There is a screw fragment in the base of the first metatarsal. There is either an old healed fracture or osteotomy of the first metatarsal. No acute fractures are seen. There is mild osteoarthritis in the interphalangeal joint of the great toe. There is marked diffuse swelling on the dorsum of the foot. IMPRESSION: 1. Screw fragment in the base of the first metatarsal. 2. 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 3. Marked dorsal swelling. ELECTRONICALLY SIGNED BY: TWILA GUDINO M.D. Jan 18 2020 3:16PM Dictated: Jan 18 2020 3:15PM EEB1 Transcribed: Jan 18 2020 3:15PM Dispersed: Jan 18 2020 3:16PM Ordering Dr: GINGER PRICE Admitting Dr: GINGER PRICE Primary Care: GINGER PRICE Additional Doctor(s): ELECTRONICALLY SIGNED BY: TWILA GUDINO M.D.Jan 18 2020 3:16PM ^ Osmel mclean, [place] - [place] - [place] 02/01/2020 08:46:23 Mri, Lower Extremity, W/o Contrast : INDICATION: Pain and swelling after hardware removal, concern for first metatarsal fracture. COMPARISON: Radiographs from 01/18/2020. TECHNIQUE: MR imaging of the right foot was performed without contrast. Axial T1-weighted and fat-suppressed proton density weighted, coronal T1-weighted and STIR and sagittal T2-weighted images were obtained.. FINDINGS: There is magnetic susceptibility artifact from a screw fragment which remains in the first metatarsal head. This causes nonuniform fat suppression which limits the study. No fractures are seen. Specifically, the first metatarsal appears to be intact. There is slight bone marrow edema in the shaft of the first metatarsal which could be from hardware removal, bone bruising or mild stress reaction. However, no fracture lines are seen and there is no retroperitoneal replacement on T1-weighted imaging. There is also moderate bone marrow edema in the distal phalanx of the great toe consistent with bone bruising or stress reaction. There is slight joint space narrowing and osteophyte formation in the MTP joint of the great toe. There is also joint space narrowing and marginal spurring at the interphalangeal joint of the great toe. There is a large amount of synovial thickening surrounding the extensor hallucis longus tendon consistent with tenosynovitis. This appears to be in the region of the patient's pain. No tendon tear is seen. The rest of the tendons and tendon sheaths are normal in appearance. No ligament tears are seen. There is marked edema in the subcutaneous soft tissues on the dorsum of the ankle and midfoot. No soft tissue masses or ganglion cysts are seen. IMPRESSION: 1. There is a screw fragment remaining in the base of the first metatarsal. There is slight bone marrow edema in the first metatarsal consistent with mild bone bruising. No fracture is seen. 2. Moderate bone marrow edema in the distal phalanx of the great toe consistent with bone bruising or stress reaction. 3. Marked tenosynovitis involving the extensor hallucis longus tendon sheath. 4. Marked edema in the subcutaneous soft tissues on the dorsum of the ankle and midfoot consistent with lymphedema. 5. Mild osteoarthritis in the MTP joint of the great toe and interphalangeal joint of the great toe. Electronically Signed By: Twila Gudino MD [facility] 2020-01-25 07:45:36 Ginger Price, DO [address] [place] [address], [address], [place], [address], [place] 01/29/2020 08:13:02 Procedures Surgical History Date Name Laterality Status Provider Name and Address Organization Details Recorded Time Tonsillectomy/Isabella noidectomy completed Not Available [employer] - Temp 01/18/2020 12:59:39 Hysterectomy completed Not Available [employer] - Temp 01/18/2020 12:59:39 Orthopedic Surgery completed Not Available [employer] - Temp 01/18/2020 12:59:40 Imaging Results Imaging Date Name Status LastModified by Organiz ation Details LastModified Time 01/18/2020 XR, foot completed [facility] [address], [place], [address], 02/01/2020 08:46:23 01/23/2020 MRI, lower extremity, w/o contrast completed acorrigan [facility] [address] [place], [address], 01/29/2020 08:13:02 01/25/2020 MRI, foot, w/o contrast completed [facility] [address] [place], [address], 01/30/2020 15:15:23 Procedure Notes None recorded. Medical Equipment None Reported. Vitals None Recorded Social History Question Answer Notes LastModified by Organizat ion Details LastModified Time Have You Had A Fever And/or Symptoms Of A Lower Respiratory Illness (cough, Difficulty Breathing, Etc)? No API-81 Information not available 01/18/2020 Sex: Female Functional Status None recorded. Mental Status None recorded. Family History Nothing Reported. Medical History Condition Response cancer N chronic pain N serious illness or injuries N high blood pressure N blood clots N diabetes mellitus N heart problems N anesthesia complications N Gynecological HistoryNo gynecological history recorded. Obstetrics History GPAL:G 0 P 0 0 0 0 Past Encounters Encounter ID Performer Location Encounter Start Date Encounter Closed Date Diagnosis/Indication Diagnosis SNOMED-CT Code [id number] Anatoliy Sandeep DO IND_IND_C TM2_DOC [id number] [place] [address] 01/18/2020 12:59:34 01/18/2020 13:57:21 Pain in right foot [id number] Ginger Price DO IND_IND_C TM2_DOC [id number] [place] [address] 02/01/2020 12:56:28 02/01/2020 13:24:13 Pain in right foot [id number] Health Concerns Section Related Observation LastModified by Organization Detai ls LastModified Time None Recorded Concern Status LastModified by Organization Details LastModified Time None Recorded Advance Directives Directive None Recorded Payers Encounter Date Sequence Insurance Name Policy Number Policy Menendez Covered Member ID Menendez Member ID Guarantor Name 01/18/[address] [facility] [id number] Dileep Porter [id number] Luz Maria Porter 02/01/[address] [facility] [id number] Dileep Porter [id number] Luz Maria Porter Notes Date Note Type Note Provider Name and Address Organization Details Recorded Time 01/18/2020 text/html HPI Notes: 64-year-old female who is coming in with right foot pain. She reports that in 2016 she had a crush injury from a horse where she had a comminuted fracture of her what sounds like first and second metatarsal. She had a plate and several screws put in at that time. She was fine until 2018 when she began to notice pain with 1 of the screws started to come loose. At that point her surgeon elected to remove all of her hardware. She was fine from May 2019 at the time of surgery until September 2019 when she moved to [place]. 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 She has underlying neuropathy in both feet which she feels is worse than the right. She also reports a very high arched foot that is been present since her surgery. Anatoliy Hopkins DO [address] [place] [address], [address], [place], [address], [place] - [facility] 01/18/2020 13:52:55 02/01/2020 text/html HPI Notes: Carlos starks is here for follow up on right foot pain after being in boot for 2 weeks and getting MRI. She has greatly improved. No pain in the boot but still has some pain out of the boot on great toe and top of foot. Will be in [place] for awhile taking care of her mother who is currently at [address] inpatient[address] If she walks around a lot she will have more pain and swelling however. Ginger Price, DO [address], [place], [address], [place] [facility] 13:42:31 OBGyn Episode No OBEpisode recorded.
--- OUTSIDE RECORDS SUMMARY | 2023-11-22 19:03 | XMS_ITS | Encounter Summary ---
Author Organization [place] Address [address] [place] [address] Care Team Providers Care Calender Worker Helper Name Role Phone Romie Falk MD Unavailable + [phone] Chriss Kaur MD Primary Care Provider [phone] Roger Pierce PA-C Unavailable [phone] Encounter Details Date Type Department Care Team (Late st Contact Info) Description 10/17/2020 [facility] [address] [address] Teja Dominguez ATC Social History Tobacco Use Types Packs/Day Years Used Date Smoking Tobacco: Never Smokeless Tobacco: Never Alcohol Use Standard Drinks/Week Comments Yes 0 (1 standard drink = 0.6 oz pur e alcohol) occasionally PHQ-2 Answer Date Recorded PHQ-2 Score 0 08/01/2020 Sex and Gender Information Value Date Recorded Sex Assigned at Not on file Gender Identity Not on file Sexual Orientation Not on file COVID-19 Exposure Response Date Recorded In the last month, have you been in contact with someone who was confirmed or suspected to have Coronavirus / COVID-19? No / Unsure 09/24/2020 1:15 PM CDT documented as of this encounter Plan of Treatment Not on file documented as of this encounter Visit Diagnoses Not on filedocumented in this encounter Care Teams Calender Worker Helper Relationship Specialty Start Date End Date Chriss Kaur MD [address] [place] [address] PCP - General Family Medicine 07/30/20 Romie Falk MD [address] [place] [address] Assigned Musculoskeletal Provider 06/09/20 03/27/22 Roger Pierce PA-C [facility] [address] [place] [address] Referring Physician 07/30/20 documented as of this encounter
--- OUTSIDE RECORDS SUMMARY | 2023-11-22 19:03 | XMS_ITS | Clinical Summary ---
Author Organization [place] Address [address] [place] [address] Care Team Providers Care Spindraw Operator Name Role Phone Chriss Kaur MD Primary Care Provider [phone] Roger Pierce PA-C Unavailable Allergies No known active allergies Medications Medication Sig Dispensed Refills Start Date End Date Status buPROPion (WELLBUTRIN SR) 150 MG 12 hr tablet Take 150 mg by mouth 2 times daily 02/14/2020 Active Mag Aspart-Potassium Aspart (POTASSIUM & MAGNESIUM ASPARTAT PO) Take 1 tablet by mouth every morning Active Milk Royelku-Yzpd-Moczqd-L icor (MILK THISTLE XTRA) CAPS capsule Take 1 capsule by mouth every morning Active citalopram (CELEXA) 40 MG tablet Take 40 mg by mouth daily Every morning Active vitamin B-12 (CYANOCOBALAMIN) 100 MCG tablet Take 100 mcg by mouth daily Active oxybutynin ER (DITROPAN-XL) 10 MG 24 hr tablet Take 10 mg by mouth daily Active pregabalin (LYRICA) 300 MG capsule Take 300 mg by mouth 2 times daily Active acetaminophen (TYLENOL) 325 MG tabletIndications:Cer vical pain Take 2 tablets (650 mg) by mouth every 4 hours as needed for other 60 tablet 08/25/2020 Active polyethylene glycol (MIRALAX) 17 g packetIndications:Cer vical pain Take 17 g by mouth daily 7 packet 08/23/2020 Active senna-docusate (SENOKOT-S/PERICOLACE ) 8.6-50 MG tabletIndications:Cer vical pain Take 1 tablet by mouth 2 times daily 30 tablet 08/23/2020 Active oxyCODONE (ROXICODONE) 5 MG tabletIndications:Cer vical pain Take 1 tablet (5 mg) by mouth every 4 hours as needed for severe pain (wean off as pain improves) 40 tablet 09/13/2020 Active Active Problems Problem Noted Date Diagnosed Date Cervical pain 06/14/2020 Overview: Added automatically from request for surgery [id number] Cervical myelopathy with cervical radiculopathy 06/14/2020 Overview: Added automatically from request for surgery [id number] Family History Medical History Relation Comments Cancer Father lung Gallbladder Disease Mother Nephrolithiasis Mother Relation Status Comments Father Mother Alive Social History Tobacco Use Types Packs/Day Years Used Date Smoking Tobacco: Never Smokeless Tobacco: Never Tobacco Cessation:Counseling Given: No Alcohol Use Standard Drinks/Week Comments Yes 0 (1 standard drink = 0.6 oz pur e alcohol) occasionally PHQ-2 Answer Date Recorded PHQ-2 Score 0 08/01/2020 Adolescent Education Answer Date Record ed Getting School Help Needed Not on file 03/13 Sex and Gender Information Value Date Recorded Sex Assigned at Not on file Gender Identity Not on file Sexual Orientation Not on file Last Filed Vital Signs Vital Sign Reading Time Taken Comments Blood Pressure 100/55 08/24/2020 9:00 AM CDT Pulse 79 08/24/2020 9:00 AM CDT Temperature 37.1 ??C (98.7 ??F) 08/24/2020 9:00 AM CD T Respiratory Rate 16 08/24/2020 9:00 AM CDT Oxygen Saturation 95% 08/24/2020 9:00 AM CDT Inhaled Oxygen Concentration - - Weight 63.5 kg (140 lb) 09/24/2020 1:22 PM CDT Height 162.6 cm (5' 4) 09/24/2020 1:22 PM CDT Body Mass Index 24.03 09/24/2020 1:22 PM CDT Plan of Treatment Not on file Medical Devices Implanted Type Area Chain Maker Device Identifier Shelf Expiration Date Model / Serial / Lot Graft Tissue Stem Cell Xactium Med [id number] Implanted:Qty : 1 on 08/22/2020 by Romie Falk MD at [facility] Bone/Tissu e/Biologic N/A: Spine Cervical [employer] 02/26/2022 [id number] / Imp End Cap Medt [id number] Implanted:Qty : 1 on 08/22/2020 by Romie Falk MD at [facility] Metallic Hardware/A nchor N/A: Spine Cervical [employer] [id number] 04/10/2028 [id number] / / [id number] Imp End Cap Medt [id number] Implanted:Qty : 1 on 08/22/2020 by Romie Falk MD at [facility] Metallic Hardware/A nchor N/A: Spine Cervical [employer] [id number] 04/10/2028 [id number] / / 18KV Imp Plate Cerv Medt Zevo 35mm 2 Lvl [id number] Implanted:Qty : 1 on 08/22/2020 by Romie Falk MD at [facility] Metallic Hardware/A nchor N/A: Spine Cervical [employer] [id number] / / Imp Scr Medt Zevo 3.5x17mm St [place] [id number] Implanted:Qty : 3 on 08/22/2020 by Romie Falk MD at [facility] Metallic Hardware/A nchor N/A: Spine Cervical [employer] [id number] / / Imp Scr Medt Zevo 4.0x17mm St Va [id number] Implanted:Qty : 1 on 08/22/2020 by Romie Falk MD at [facility] Metallic Hardware/A nchor N/A: Spine Cervical [employer] [id number] / / Imp Scr Medt Zevo 4.0x15mm St Va [id number] Implanted:Qty : 1 on 08/22/2020 by Romie Falk MD at [facility] Metallic Hardware/A nchor N/A: Spine Cervical [employer] [id number] / / Imp Scr Medt Zevo 4.0x13mm St Va [id number] Implanted:Qty : 1 on 08/22/2020 by Romie Falk MD at [facility] Metallic Hardware/A nchor N/A: Spine Cervical [employer] [id number] / / Procedures Procedure Name Priority Date/Time Associated Diagnosis Comments GLUCOSE BY METER Routine 08/23/2020 6:36 AM CDT Cervical pain from Last 3 Months or Most Recently Relevant to Health Maintenance Results * (ABNORMAL) Glucose by meter (08/23/2020 6:36 AM CDT) Glucose 106(H) 70 - 99 mg/dL 08/23/2020 6:44 AM CDT POINT OF CARE TEST, GLUCOSE 08/23/2020 6:36 AM CDT 08/23/2020 6:44 AM CDT Romie Falk MD LAB - [facility] R POCT POINT OF CARE TEST, GLUCOSE from Last 3 Months or Most Recently Relevant to Health Maintenance Advance Directives For more information, please contact: [phone] * Full Code (Latest Code Status on File) Date Activated Date Inactivated Comments 08/22/2020 1:59 PM 08/24/2020 3:18 PM All basic an d advanced life-sustaining interventions are performed as appropriate Question Answer Comments Code status determined by: Discussion with nitin nt/ legal decision maker * Full Code Date Activated Date Inactivated Comments 08/22/2020 12:31 PM 08/22/2020 1:59 PM Question Answer Comments Code status determined by: Discussion with nitin nt/ legal decision maker Care Teams Spindraw Operator Relationship Specialty Start Date End Date Chriss Kaur MD PCP - General Family Medicine 07/30/20 Roger Pierce PA-C [facility] [address] [place] [address] Referring Physician 07/30/20
--- OUTSIDE RECORDS SUMMARY | 2023-11-22 19:03 | XMS_ITS | Referral Summary ---
Author Organization [facility] Address [address] [place] [address] Care Team Providers Care Mandrel Puller Name Role Phone Chriss Kaur MD Primary Care Provider [phone] Roger Pierce PA-C Unavailable [phone] Allergies No known active allergies Medications Medication Sig Dispensed Refills Start Date End Date Status buPROPion (WELLBUTRIN SR) 150 MG 12 hr tablet Take 150 mg by mouth 2 times daily 02/14/2020 Active Mag Aspart-Potassium Aspart (POTASSIUM & MAGNESIUM ASPARTAT PO) Take 1 tablet by mouth every morning Active Milk Cotjljt-Hqbl-Ckoeia-L icor (MILK THISTLE XTRA) CAPS capsule Take [...] Overview: Added automatically from request for surgery [id number] Cervical myelopathy with cervical radiculopathy 06/14/2020 Overview: Added automatically from request for surgery [id number] Social History Tobacco Use Types Packs/Day Years [...] on file Medical Devices Implanted Type Area Operations Officer Trust Department Device Identifier Shelf Expiration Date Model / Serial / Lot Graft Tissue Stem Cell [employer] Elite Med [id number] Implanted:Qty : 1 on 08/22/2020 by Romie Falk MD at [facility] Bone/Tissu e/Biologic N/A: Spine Cervical [employer] 02/26/2022 [id number] / [id number] / Imp End Cap Medt [id number] Implanted:Qty : 1 on 08/22/2020 by Romie Falk MD at [facility] Metallic Hardware/A nchor N/A: Spine Cervical [employer] [id number] 04/10/2028 [id number] / / [id number] Imp End Cap Medt [id number] Implanted:Qty : 1 on 08/22/2020 by Romie Falk MD at [facility] Metallic Hardware/A nchor N/A: Spine Cervical [employer] [id number] 04/10/2028 [id number] / / [id number] Imp Plate Cerv Medt Zevo 35mm 2 Lvl [id number] Implanted:Qty : 1 on 08/22/2020 by Romie Falk MD at [facility] Metallic Hardware/A nchor N/A: Spine Cervical [employer] [id number] / / Imp Scr Medt Zevo 3.5x17mm St [place] [id number] Implanted:Qty : 3 on 08/22/2020 by Romie Falk MD at [facility] Metallic Hardware/A nchor N/A: Spine Cervical [employer] [id number] / / Imp Scr Medt Zevo 4.0x17mm St Va [id number] Implanted:Qty : 1 on 08/22/2020 by Romie Falk MD at [facility] Metallic Hardware/A nchor N/A: Spine Cervical [employer] [id number] / / Imp Scr Medt Zevo 4.0x15mm St Va [id number] Implanted:Qty : 1 on 08/22/2020 by Romie Falk MD at [facility] Metallic Hardware/A nchor N/A: Spine Cervical [employer] [id number] / / Imp Scr Medt Zevo 4.0x13mm St Va [id number] Implanted:Qty : 1 on 08/22/2020 by Romie Falk MD at [facility] Metallic Hardware/A nchor N/A: Spine Cervical [employer] [id number] / / Procedures Procedure Name Priority Date/Time [...] Advance Directives For more information, please contact: [phone] * Full Code (Latest Code Status on [...] nitin nt/ legal decision maker Care Teams Mandrel Puller Relationship Specialty Start Date End Date Chriss Kaur MD PCP - General Family Medicine 07/30/20 Roger Pierce PA-C [facility] [address] [facility] [place] [address] Referring Physician 07/30/20
--- OUTSIDE RECORDS SUMMARY | 2023-11-22 19:03 | XMS_ITS | Continuity of Care Document ---
Author Organization [facility] Address [address] [address] [place] [address] Phone Care Team Providers Care Alarm Signaler Name Role Phone Roger Carter MD Unavailable Unavailabl e Allergies, Adverse Reactions, Alerts Substance Reaction Status Criticality aspirin Active No Information Medications Medication Instructions Dosage Effective Dates (start - stop) Status Comments pregabalin 200 mg capsule take 1 capsule by oral route 2 times every day 200 MG - Active WELLBUTRIN SR (unknown strength) take 1 tablet by ORAL route 2 times every day Not Available - Active Herbal Medications/Supple ments unknown medical marijuana - Active DETROL LA (unknown strength) take 1 Capsule by oral route every day Not Available - Active CELEXA (unknown strength) take 1 tablet by oral route every day Not Available - Active Procedures Procedure Date Ugi Endo; W/bx 1/mx Level Iv-surg Path Gross/micro 20 Offic/outpt E&m Estab Mod-hi 2 20 Routine Serum Collection Bld Ct; Hg & Platelet Ct Autom 20 Alpha-fetoprotein; Serum Comp Metabolic Panel FibroScan Routine Serum Collection Alpha-fetoprotein; Serum Comp Metabolic Panel Hepatitis A Antibody; Igg & Ig 19 Hepatitis B Surface Antibody Ag-immunoassay; Hep B Surface 9 Prothrombin Time Advance Directives Directive Yes / No Effective Date File Name No Information Encounters Encounter Description Practice Location Reason(s) For Visit Diagnoses Date Provider Providers Copied on Encounter [facility], [address] [address], [place], [id number], [place] tel:[phone] [facility] No Information 4 Alcon Duran. [address] [facility], [facility] [address], [place], [id number] , [place]. [phone] [facility], [address] [address], [place], [id number], [place] tel:[phone] [facility] Morgan's esophagus determined by endoscopyChronic hepatitis C without hepatic comaEsophageal varices without bleedingBarrett's esophagus without dysplasiaChronic viral hepatitis C 0 Tristan Donaldson. [address] [facility], [facility] [address], [place], [id number] , [place]. tel:[phone] Referring Provider: Chriss Kaur MD, [address] [place] [address], [address]. tel:[phone] Offic/outpt E&m Estab Mod-hi 2 [facility] [place], [address] [address], [place], [id number], [place] tel:[phone] [facility] GI Symptoms or Concerns (chief complaint) Chronic viral hepatitis C 0 Barbie Hicks. [address] [facility], [address], [place], [id number] , [place]. [phone] Referring Provider: Referral Self, USE FOR SELF REFERRALS. [facility], [address] [address], [place], [id number], [place] tel:[phone] [facility] No Information 9 Kevon Owens. [address] [facility], [address], [place], [id number] , [place]. tel:[phone] [facility], [address] [address], [place], [id number], [place] tel:[phone] [facility] Chronic viral hepatitis C 9 Barbie Hicks. [address] [facility], [facility] [address], [place], [id number] , [place]. tel:[phone] Referring Provider: Referral Self, USE FOR SELF REFERRALS. [facility] [place], [address] [address], [place], [id number], [place] tel:[phone] [facility] GI Symptoms or Concerns (chief complaint) Chronic hepatitis C without hepatic coma 9 Barbie Hicks. [address] [facility], [facility] [address], [facility] [place], [id number] , [place]. tel:[phone] Referring Provider: Melia Interiano [facility], [address] [place] [address], [address]. tel:[phone] Family History Family Member Type Diagnosis Age At Onset Mother Problem (finding) Alive and well Father Problem (finding) Immunizations Vaccine Date Status Comments Prevnar administered Note: [facility] bi-d irectional interface ; Source: Other Registry tetanus toxoid, reduced diphtheria toxoid, and acellular pertussis vaccine, adsorbed administered Note: [employer] bi-direct ional interface ; Source: Other Registry Influenza administered Note: [facility] bi-d irectional interface ; Source: Other Registry Payers Payer name Insurance type Covered democrat ID Authoriza tion(s) No Information Social History Type Description Quantity Date Captured Comments Sex Female Smoking Status No Information Chief Complaint And Reason For Visit No Information Reason For Referral Reason For Referral No Information Plan Of Treatment Date Type Action Status Referral Ordered: follow-up visit with hepatology nurse 3 Weeks Appointment date/timeframe: 3 Weeks ordered History Of Present Illness Encounter Date Complaint History Of Prese nt Illness GI Symptoms or Concerns The bonnie ent is a 64-year-old woman with chronic hepatitis C. She was seen 6 months ago, and tentative plans were made for treatment, but she did not come for followup. She frequently goes out of town and feels that it is difficult too treat when she is not here for a period of time. Workup 6 months ago revealed that she is genotype 1a with 7.7 million international units of virus present. She is not immune to hepatitis B and non-infected for B. Moderate transaminase elevations with AST 76, ALT 129 and ultrasound done at that time revealed fatty infiltration, otherwise unremarkable exam. Notably, FibroScan was done and demonstrated 30 kilopascals of stiffness indicating that she is cirrhotic. She has no specific complaints today. Physical exam was noncontributory. There is no hepatosplenomegaly, no ascites, no edema and no asterixis. Past history otherwise notable for shoulder surgery, ACL surgery, left leg surgery, right foot surgery and a total hysterectomy. She is a nonsmok GI Symptoms or Concerns The bonnie ent is a 63-year-old woman who comes in for further evaluation of possible liver disease. She states she knows she has hepatitis C, but is uncertain she can afford medication. 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 Past history is also notable for shoulder surgery, ACL surgery, left leg surgery, right foot surgery and hysterectomy. She has a lower extremity neuropathy and actually fell 3 times last year with a fractured tibia requiring pinning. She is a nonsmoker. Review of systems is completely negative. Only medications at this time are Detrol and Celexa. Physical exam is completely unremarkable. There is no hepatomegaly, no ascites, no asterixis, no spider angiomata, and no edema. Laboratory done in September of last year notable for moderate transaminase elevations with AST 93, ALT 110, hemoglobin A1c 5.4. Total bilirubin and albumin were normal. More recent liver tests done in August of this year again with mild mukherjee Functional Status Date Functional Assessmen t No Information Instructions Date Instruction Additional Infor megha Repeat comprehensive metabolic profile, INR, HCV RNA genotyping, liver ultrasound, FibroScan, hepatitis A-B serologies and consider vaccinating as necessary. Patient is going to [facility] next month for a family vacation home and will be there for about 2 months. We will plan follow up in 3 months and hopefully begin hepatitis C treatment at that time. Related to Chronic hepatitis C without hepatic coma Assessments Type Assessment Date No Information Patient Care Teams Name Effective Dates (start - stop) Status Members No Information
--- OUTSIDE RECORDS SUMMARY | 2023-11-22 19:03 | XMS_ITS | Encounter Summary ---
Author Organization [facility] Address [address] [place] [address] Care Team Providers Care Rehabilitation Psychologist Name Role Phone Romie Falk MD Unavailable [phone] Chriss Kaur MD Primary Care Provider [phone] Roger Pierce PA-C Unavailable [phone] Encounter Details Date Type Department Care Team ([facility] st Contact Info) Description 09/13/2020 [facility] [address] [address] Carol Mora RN Social History Tobacco Use Types Packs/Day Years [...] have Coronavirus / COVID-19? No / Unsure 08/22/2020 7:19 AM CDT documented as of this encounter Plan of Treatment Not on file documented as of this encounter Visit Diagnoses Not on filedocumented in this encounter Care Teams Rehabilitation Psychologist Relationship Specialty Start Date End Date Chriss Kaur MD [address] [place] [address] PCP - General Family Medicine 07/30/20 Romie Falk MD [address] [place] [address] Assigned Musculoskeletal Provider 06/09/20 03/27/22 Roger Pierce PA-C [facility] [address] [place], [place] [id number] Referring Physician 07/30/20 documented as of this encounter
== END 2023-11-18 11:26 | disposition home or self-care (01) ==
LOC: NFLDREF 11-22 19:01
PROVIDERS: PCP Family Medicine; Referring Provider Family Medicine; Visit Provider Family Medicine
DX: M79.641 Pain in right hand (principal); G62.9 Polyneuropathy, unspecified; F32.A Depression, unspecified; F41.8 Other specified anxiety disorders; K51.90 Ulcerative colitis, unspecified, without complications; K76.0 Fatty (change of) liver, not elsewhere classified; Z13.1 Encounter for screening for diabetes mellitus; Z13.220 Encounter for screening for lipoid disorders; Z79.899 Other long term (current) drug therapy
CPT/HCPCS: 80053; 80061

== ENCOUNTER 2024-07-03 15:14 | Outpatient (CLI) | payer MEDICARE, SELFPAY | END 2024-07-03 15:15 | disposition home or self-care (01) | LOC: LKVREF 15:21 | PROVIDERS: PCP Family Medicine; Visit Provider Family Medicine | DX: F41.8 Other specified anxiety disorders (principal); R23.2 Flushing; R32 Unspecified urinary incontinence; R53.83 Other fatigue; K51.90 Ulcerative colitis, unspecified, without complications; M54.9 Dorsalgia, unspecified | CPT/HCPCS: 80053; 84443; 87086 ==

== ENCOUNTER 2024-07-05 13:42 | Outpatient (CLI) | payer MEDICARE, SELFPAY ==
--- NOTE | 2024-07-05 14:00 | CRLHL7_ITS ---
For Patients: As a result of the Century Cures Act, medical imaging exams and procedure reports are released immediately into your electronic medical record. You may view this report before your referring provider. If you have questions, please contact your health care provider. BILATERAL DIGITAL SCREENING MAMMOGRAM WITH COMPUTER-AIDED DETECTION AND TOMOSYNTHESIS CLINICAL HISTORY: Routine screening exam. COMPARISON: 04/03/19, 09/08/16. TECHNIQUE: Digital mammogram in CC and MLO projections including computer-aided detection (CAD). Tomosynthesis was used in this interpretation. BREAST COMPOSITION: There are scattered areas of fibroglandular density. FINDINGS: RIGHT Breast: Cluster of microcalcifications within the lower inner quadrant 5 cm from the nipple. LEFT Breast: No suspicious findings. IMPRESSION: RIGHT breast calcifications. RECOMMENDATIONS: Spot compression magnification views of the calcifications in the RIGHT breast in CC and ML projections. The [facility] will contact the patient. A lay language report of this examination will be provided to the patient. BI-RADS Category 0: Incomplete: Need Additional Imaging Evaluation Dictated by Kurt Ruiz MD @ 07/06/2024 11:16:50 AM jj/Dictated by: Kurt Ruiz MD @ 07/06/2024 11:16:00 AM (Electronically Signed)
== END 2024-07-05 13:43 | disposition home or self-care (01) ==
LOC: MAMMO 13:43
PROVIDERS: PCP Family Medicine; Visit Provider Family Medicine
DX: Z12.31 Encounter for screening mammogram for malignant neoplasm of breast (principal); R92.1 Mammographic calcification found on diagnostic imaging of breast; Z13.820 Encounter for screening for osteoporosis; M85.89 Other specified disorders of bone density and structure, multiple sites
CPT/HCPCS: 77063; 77067; 77080

== ENCOUNTER 2024-07-25 10:45 | Outpatient (CLI) | payer MEDICARE, SELFPAY | END 2024-07-25 10:46 | disposition home or self-care (01) | LOC: MAMMO 10:45 | PROVIDERS: PCP Family Medicine; Visit Provider Family Medicine | DX: R92.1 Mammographic calcification found on diagnostic imaging of breast (principal) | CPT/HCPCS: 77065; G0279 ==

== ENCOUNTER 2024-10-30 16:49 | Outpatient (CLI) | payer MEDICARE, SELFPAY | END 2024-10-30 16:50 | disposition home or self-care (01) | LOC: LKVREF 16:53 | PROVIDERS: PCP Family Medicine; Visit Provider Family Medicine | DX: K76.0 Fatty (change of) liver, not elsewhere classified (principal); M54.9 Dorsalgia, unspecified; R82.90 Unspecified abnormal findings in urine | CPT/HCPCS: 80053; 87086 ==

== ENCOUNTER 2024-11-14 13:56 | Outpatient (CLI) | payer MEDICARE, SELFPAY ==
--- NOTE | 2024-11-14 13:45 | CRLHL7_ITS ---
For Patients: As a result of the Century Cures Act, medical imaging exams and procedure reports are released immediately into your electronic medical record. You may view this report before your referring provider. If you have questions, please contact your health care provider. INDICATION: Elevated LFTs, alcohol abuse COMPARISON: 04/03/2019 TECHNIQUE: Real time tang scale imaging and color Doppler analysis was performed of the right upper quadrant. FINDINGS: The patient`s liver is of normal size and has mildly coarsened/increased echogenicity. There is a normal appearance of the hepatic IVC and proximal abdominal aorta. There is no evidence of ascites. The gallbladder is of normal size and there is no evidence of intraluminal stones or sludge. The gallbladder wall measures 2 mm in thickness. The common bile duct is of normal size and measures 4 mm in diameter at the level of the tammy hepatis. The pancreas appears normal. There is no evidence of a stone or hydronephrosis within the right kidney. The right kidney measures 8.5 cm in length. IMPRESSION: Mild chronic liver disease. No ascites. Dictated by Kurt Ruiz MD @ 11/14/2024 3:50:39 PM (Electronically Signed)
== END 2024-11-14 13:57 | disposition home or self-care (01) ==
LOC: US 13:56
PROVIDERS: PCP Family Medicine; Visit Provider Family Medicine
DX: R79.89 Other specified abnormal findings of blood chemistry (principal); K76.9 Liver disease, unspecified; F10.10 Alcohol abuse, uncomplicated; K76.0 Fatty (change of) liver, not elsewhere classified
CPT/HCPCS: 76705

== ENCOUNTER 2025-02-19 15:00 | Outpatient (CLI) | payer MEDICARE, SELFPAY | END 2025-02-19 15:01 | disposition home or self-care (01) | PROVIDERS: PCP Family Medicine; Visit Provider Family Medicine | DX: Z01.818 Encounter for other preprocedural examination (principal); D64.9 Anemia, unspecified; R79.89 Other specified abnormal findings of blood chemistry | CPT/HCPCS: 80076; 82607; 82728; 83540 ==

== ENCOUNTER 2025-05-17 15:34 | Outpatient (CLI) | payer MEDICARE, SELFPAY | END 2025-05-17 15:35 | disposition home or self-care (01) | LOC: NFLDREF 05-21 15:39 | PROVIDERS: PCP Family Medicine; Referring Provider Family Medicine; Visit Provider Family Medicine | DX: R32 Unspecified urinary incontinence | CPT/HCPCS: 87086 ==